=== PATIENT | female | born 1995 ===

== ENCOUNTER 2023-08-31 09:38 | Emergency (ER) | payer BC, MEDICARE ==
[~2023-08-31] VITALS: Ht 162.6 cm; Wt 49.9 kg
[2023-08-31 12:35] VITALS: BP 153/119
== END 2023-08-31 12:45 | disposition home or self-care (01) ==
LOC: ER 09:38
DX: S40.022A Contusion of left upper arm, initial encounter (principal); X58.XXXA Exposure to other specified factors, initial encounter; Z94.0 Kidney transplant status
CPT/HCPCS: 76882; 99283-25